=== PATIENT | female | born 1995 | race African-American/Black ===

== ENCOUNTER 2020-07-16 22:40 | Emergency (ER) | payer MEDICAID ==
[~2020-07-16] VITALS: Ht 165.1 cm; Wt 54.4 kg
[~2020-07-16 22:40] MED LIST: MIRALAX17 G2 ORAL; NKM; ZOFRAN ODT4 MG ORAL
[2020-07-16 22:45] VITALS: BP 143/97
--- NOTE | 2020-07-16 22:45 | NUR ---
ED Nurse Note: PT AMBULATED INTO ED FROM HOME FOR STI/STD TESTING DUE TO PARTNER REPORTING RECENT HX OF CHLYMIDIA. PT DENIES ANY SYMPTOMS AT THIS TIME. Patient ao4 with no acute distress. ermd at bedside; patient refuses treatment and requests sti testing only. all safety measures met.
--- NOTE | 2020-07-16 22:50 | NUR ---
ED Nurse Note: urine collected; sent down to lab.
[2020-07-16 23:00] VITALS: BP 143/97
--- NOTE | 2020-07-16 23:00 | Emergency Room Report ---
History of Present Illness General Chief Complaint: Female Urogenital Problems Source: Patient Present Illness HPI Patient is a 25-year-old female denies any significant past medical history who presents to the ER requesting STD test. Patient states that her partner tested positive several days ago for chlamydia. Patient denies any abdominal pain, vaginal pain, or abnormal vaginal discharge. She denies any fever or chills. She denies any abdominal pain nausea or vomiting. She states that she does not want to be empirically treated and wants to wait for testing. 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 Patient History Last Menstrual Period: 07/05/20 Now: Yes : 1 Para: 1 Reviewed Nursing Documentation: PMH: Agreed; PSxH: Agreed Nursing Documentation-PMH Past Medical History: No History, Except For Review of Systems All Other Systems: negative except mentioned in HPI Physical Exam Vital Signs Date Time Temp Pulse Resp B/P (MAP) Pulse Ox O2 Delivery O2 Flow Rate FiO2 07/16/20 22:41 98.1 89 18 143/97 (112) 96 Room Air Sp02 EP Interpretation: reviewed, normal General Appearance: no apparent distress, alert, GCS 15, non-toxic Head: normocephalic, atraumatic Eyes: bilateral eye normal inspection, bilateral eye PERRL ENT: hearing grossly normal, normal pharynx, no angioedema, normal voice Neck: full range of motion, supple/symm/no masses Respiratory: chest non-tender, lungs clear, normal breath sounds, speaking full sentences Cardiovascular #1: regular rate, rhythm, no edema Gastrointestinal: normal bowel sounds, non tender, soft, non-distended, no guarding, no rebound Rectal: deferred Genitourinary: no CVA tenderness Musculoskeletal: normal range of motion Neurologic: rn teacher III-XII nml as tested, oriented x3 Psychiatric: no suicidal/homicidal ideation Skin: no rash Lymphatic: no adenopathy Medical Decision Making Diagnostic Impression: Primary Impression: Exposure to STD ER Course Patient declining being empirically treated and is requesting testing. Patient urine sent for GC and chlamydia. After discussing risks and benefits of further diagnostics, treatment plans, as well as indications for and risks of admission, the patient is agreeable to being discharged home. I have explained that their evaluation and treatment in the emergency department today is an important step towards them achieving better health but that their evaluation today is not intended to replace further evaluation and treatment by a physician in their local clinic. I have explained that while the current findings suggest no immediate life threatening emergency they will require further evaluation and treatment by a physician of their choice in their area. They understand that it will be necessary for them to review the final reports of their ED visit with their clinic physician. We have reviewed indications for return to the Emergency Department. I have explained that additional time may need to pass and/or additional testing as an outpatient may be necessary before a definitive diagnosis can be made. They tell me they are willing to follow up as instructed within the timeframe I recommend. They appear to understand what we discussed. Additionally they understand that if they are unable to be seen by an outpatient physician they are welcome, and in fact should, return to the Emergency De partment for a repeat evaluation. The patient is stable at time of discharge. Last Vital Signs Date Time Temp Pulse Resp B/P (MAP) Pulse Ox O2 Delivery O2 Flow Rate FiO2 07/16/20 22:41 98.1 89 18 143/97 (112) 96 Room Air Disposition: HOME, SELF-CARE Condition: Stable Referrals: [facility] Patient Instructions: Safe Sex Additional Instructions: The patient was provided with discharge instructions, notified to follow-up with a primary care doctor and or specialist in the next 24-48 hours, and to return to the ED if they have worsening of their symptoms. Please note that this report is being documented using [employer] technology. This can lead to erroneous entry secondary to incorrect interpretation by the dictating instrument. Polina Evans M.D. Jul 16, 2020 23:00
--- NOTE | 2020-07-16 23:00 | NUR ---
ER DISCHARGE NOTE: Patient is cleared to be discharged per ERMD, pt is aox4, on room air, with stable vital signs. pt was given dc instructions, pt was able to verbalize understanding, pt id band removed. pt is able to ambulate with steady gait. pt took all belongings.
== END 2020-07-16 23:00 | disposition home or self-care (01) ==
LOC: EMR 22:55
DX: Z20.2 Contact with and (suspected) exposure to infections with a predominantly sexual mode of transmission (principal)
CPT/HCPCS: 87491; 87590; Z7502; 99283